=== PATIENT | female | born 1945 | race Caucasian/White ===

== ENCOUNTER 2022-11-15 09:59 | Outpatient (CLI) | payer OTHER, SELFPAY ==
--- NOTE | 2022-11-15 10:15 | CRLHL7_ITS ---
For Patients: As a result of the Century Cures Act, medical imaging exams and procedure reports are released immediately into your electronic medical record. You may view this report before your referring provider. If you have questions, please contact your health care provider. BILATERAL SCREENING MAMMOGRAM WITH COMPUTER-AIDED DETECTION AND TOMOSYNTHESIS TECHNIQUE: CC and MLO views were obtained. These mammographic images have been obtained using full-field digital technique. These mammographic images were interpreted with the benefit of computer-aided detection. Breast Tomosynthesis was used in this interpretation. COMPARISON FILM: 08/10/21, 12/24/19, 08/19/18. FINDINGS: There are scattered areas of fibroglandular density. IMPRESSION: There is no radiographic evidence for malignancy. ASSESSMENT: BI-RADS Category 1: Negative RECOMMENDATION: Routine screening mammogram in 1 year. A lay language report of this examination will be provided to the patient. Hector Campuzano M.D. Diagnostic Radiologist [email or web address] SARAH/rusty PT/Dictated by: Hector Campuzano MD @ 11/15/2022 12:11:00 PM (Electronically Signed)
== END 2022-11-15 10:00 | disposition home or self-care (01) ==
LOC: MAMMO 10:00
PROVIDERS: PCP Family Medicine; Visit Provider Family Medicine
DX: Z12.31 Encounter for screening mammogram for malignant neoplasm of breast (principal)
CPT/HCPCS: 77063; 77067

== ENCOUNTER 2023-05-24 08:21 | Emergency (ER) | payer MEDICARE, SELFPAY ==
[2023-05-24 08:24] VITALS: BP 135/79; PULSE 72; RESP 18; TEMP 36.6; O2SAT 99; BMI 28.0
--- NOTE | 2023-05-24 08:48 | ED.GENADULT ---
HPI - General Adult General Chief complaint: Extremity Pain/Injury, Lower Stated complaint: Right leg pain Time Seen by Provider: 05/24/23 08:29 Source: patient Mode of arrival: ambulatory Limitations: no limitations History of Present Illness HPI narrative: 78-year-old female presenting today with right-sided leg pain. Pain started yesterday behind the lower extremity in the calf area. This morning she felt a little bit higher on the calf, the pain in the lower calf resolved. She denies any recent travel, no recent surgery. No personal history of DVT or PE. She does state that she has chronic venous insufficiency of the lower extremities and wears compression stockings daily. She denies any systemic symptoms. She did have COVID-19 2 months ago. Related Data Home Medications Medication Instructions Recorded Confirmed Lactobacillus 1 cap PO .QD 08/31/22 03/29/23 acidophilus-Bifidobac.animalis 31 billion cell capsule estradiol 0.01% (0.1 mg/gram) 1 appful vaginal 3XW 08/31/22 05/24/23 vaginal cream melatonin 10 mg capsule 10 mg PO QHS PRN 08/31/22 03/29/23 mirabegron 50 mg tablet,extended 50 mg PO QDAY 08/31/22 05/24/23 release 24 hr Previous Rx's Medication Instructions Recorded furosemide 20 mg tablet 20 mg PO QDAY PRN edema #90 tabs 03/23/23 azithromycin 250 mg tablet See Rx Instructions PO .COMPLEX #6 03/29/23 tabs Allergies Allergy/AdvReac Type Severity Reaction Status Date / Time ciprofloxacin Allergy Mild Anxiety Verified 05/24/23 08:38 sulfamethoxazole AdvReac Verified 05/24/23 08:38 [From Sulfamethoxazole-Trimethoprim] trimethoprim AdvReac Verified 05/24/23 08:38 [From Sulfamethoxazole-Trimethoprim] Review of Systems Status of ROS: Reports: 10 or more systems reviewed and unremarkable except as noted in History and below PFSH PFS Surgical History Status post ablation of incompetent vein using laser ?Z98.890 - Other specified postprocedural states (ICD-10) History of tonsillectomy ?Z90.89 - Acquired absence of other organs (ICD-10) History of laser assisted in situ keratomileusis ?Z98.890 - Other specified postprocedural states (ICD-10) History of hysterectomy (2012) ?Z90.710 - Acquired absence of both cervix and uterus (ICD-10) Social History Smoking Status: Never smoker Little interest or pleasure in doing things: not at all Feeling down, depressed, or hopeless: not at all Exam Narrative: Exam Narrative: Well-nourished well-developed patient in no acute distress. Alert and oriented. Answers questions appropriately. Mood and affect are appropriate. Thoughts are goal oriented and rational. No tangential or magical thinking noted. Patient speaks in full sentences without needing to catch her breath. HEENT: Normocephalic atraumatic. Pupils are equally round reactive to light. Extraocular muscles are intact. Conjunctivae are moist without any icterus noted. Moist mucous membranes. Cardiovascular: Heart is regular rate and rhythm. Lungs: Clear to auscultation bilaterally. Extremities: Bilateral lower extremities are without edema she does have bilateral varicose veins and spider veins. Normal DP and PT pulses. Over the right posteromedial calf patient does have a palpable cord that is approximately 1-1/2 inches in length. This is the exact site of her pain. The skin is pink overlying it. It is not hot, indurated or erythematous. She has no tenderness anywhere else. The calf is not otherwise tender or swollen. Skin: Well perfused without any obvious rashes. Const: Vital Signs, click to edit/add: Vital Signs - 24 hr 05/24/23 08:24 Temperature 97.9 F Pulse Rate [Right Pulse Oximeter] 72 Respiratory Rate 18 Blood Pressure [Ri ght Upper Arm] 135/79 Pulse Oximetry 99 Oxygen Delivery Me thod Room Air Course Vital Signs Vital signs: Initial Vital Signs Temperature 97.9 F 05/24/23 08:24 Temperature Source Temporal Artery Scan 05/24/23 08:24 Pulse Rate 72 05/24/23 08:24 Pulse Rhythm Regular 05/24/23 08:24 Respiratory Rate 18 05/24/23 08:24 Blood Pressure 135/79 05/24/23 08:24 Blood Pressure Mean 97 05/24/23 08:24 Blood Pressure Position Sitting 05/24/23 08:24 Pulse Oximetry 99 05/24/23 08:24 Oxygen Delivery Method Room Air 05/24/23 08:24 Vital Signs Temperature 97.9 F 05/24/23 08:24 Pulse Rate 72 05/24/23 08:24 Respiratory Rate 18 05/24/23 08:24 Blood Pressure 135/79 05/24/23 08:24 Pulse Oximetry 99 05/24/23 08:24 Oxygen Delivery Method Room Air 05/24/23 08:24 Temperature 97.9 F 05/24/23 08:24 Pulse Rate 72 05/24/23 08:24 Respiratory Rate 18 05/24/23 08:24 Blood Pressure 135/79 05/24/23 08:24 Pulse Oximetry 99 05/24/23 08:24 Oxygen Delivery Method Room Air 05/24/23 08:24 Medical Decision Making MDM Narrative Medical decision making narrative: 78-year-old female with a superficial thrombophlebitis. I do not feel that there is any evidence of DVT at this time that would necessitate further imaging. We discussed symptomatic treatment and follow-up. Discharge Plan Discharge Clinical Impression: Superficial thrombophlebitis Patient Disposition: Home, Self-Care Condition: Stable Additional Instructions: Okay to continue acetaminophen use as needed. Okay to use heat or ice to the tender area in your leg. Continue using compression stockings. Do not sit for prolonged periods of time. Elevate your leg as much as you can. Recommend you follow-up with your primary care provider in approximately 7 days to make sure that the vein is healing appropriately. If you think that your symptoms are getting worse, return to the ER. Prescriptions: No Action azithromycin 250 mg tablet See Rx Instructions PO .COMPLEX Qty: 6 0RF Rx Instructions: For 250 mg dose pack: take 500 mg today (day 1), then 250 mg for 4 days (days 2-5) PO mirabegron 50 mg tablet extended release 24 hr 50 mg PO QDAY L. acidophilus/Bifid. animalis 31 billion cell capsule 1 cap PO .QD estradiol 0.01 % (0.1 mg/gram) cream 1 appful vaginal 3XW melatonin 10 mg capsule 10 mg PO QHS PRN furosemide 20 mg tablet 20 mg PO QDAY PRN (Reason: edema) Qty: 90 0RF Follow Up/Referrals: Mir Gould MD [Primary Care Provider] - Stand Alone Forms: [employer] Info Instructions
--- OUTSIDE RECORDS SUMMARY | 2023-05-24 08:58 | XMS_ITS | Clinical Summary ---
Author Name Unknown Organization [facility] Address [place], [place] [address] Care Team Providers Care Space Controller Name Role Phone Mir Gould MD Primary Care Provider [phone] Allergies Active Allergy Reactions Criticality Noted Date Comments Sulfamethoxazole-Trimethoprim Rash 2020 Ciprofloxacin *Unknown 09/14/2021 Medications Medication Sig Dispensed Refills Start Date End Date Status furosemide (LASIX) 20 mg tablet Take 20 mg by mouth once daily if needed. 0 06/15/2021 Active estradioL (Estrace) 0.01% (0.1 mg/g) vaginal creamIndications:Rec urrent UTI Insert 1 g into the vagina every Sunday, Sunday and Sunday. 42.5 g 3 04/21/2022 Active mirabegron EXTENDED-release (MYRBETRIQ) 50 mg tabletIndications:Ov eractive bladder Take 1 Tablet (50 mg) by mouth once daily. 90 Tablet 3 12/21/2022 Active Immunizations Name Administration Dates Next Due COVID-19 vaccine (Moderna 100mcg/0.5mL) PF MDV 05/27/2020 Influenza, IIV4 01/24/2020 Pneumococcal Poly,23-Valent (Pneumovax) 06/01/19 15 Pneumococcal conj 13-Valent (Prevnar 13) 016 Tdap 08/19/2018 Social History Tobacco Use Types Packs/Day Years Used Date Smoking Tobacco: Never Smokeless Tobacco: Never Tobacco Cessation:Counseling Given: Yes Alcohol Use Standard Drinks/Week Comments Not Currently 0 (1 standard drink = 0.6 oz pur e alcohol) rare Sex and Gender Information Value Date Recorded Sex Assigned at Not on file Gender Identity Not on file Sexual Orientation Not on file Obstetrics History Last Filed Vital Signs Vital Sign Reading Time Taken Comments Blood Pressure 120/80 12/21/2022 11:52 AM CDT Pulse 64 12/21/2022 11:52 AM CDT Temperature - - Respiratory Rate 18 06/22/2021 9:48 AM 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 Oxygen Saturation 96% 12/21/2022 11:52 AM CDT Inhaled Oxygen Concentration - - Weight 67.2 kg (148 lb 3.2 oz) 12/21/2022 11:52 AM CDT Height - - Body Mass Index - - Plan of Treatment Health Maintenance Due Date Last Done Comments Depression screening for age 12+ 1956 BMI (ht and wt on same day) for age 18+ 1962 Hepatitis C screening for age 18-79 1962 Zoster (shingles) series for age 50+ (1 of 2) 1994 DEXA/DXA scan for age 65+ 2009 Medicare Wellness for age 65+ 2009 COVID-19 vaccine series ( season) 2022 08/29/2021, 02/09/2021, 05/27/2020 Influenza for age 65+ 12/15/2022 01/24/2020 Tetanus booster 08/19/2028 08/19/2018 Pneumococcal series for age 65+ Completed 6, 06/01/2014 Tdap Completed 08/19/2018 Care Teams Space Controller Relationship Specialty Start Date End Date Mir Gould MD [address] [place] [address] PCP - General Family Practice 02/04/20
== END 2023-05-24 09:07 | disposition home or self-care (01) ==
LOC: ED 08:57
PROVIDERS: Emergency Provider Family Medicine; PCP Family Medicine
DX: I80.01 Phlebitis and thrombophlebitis of superficial vessels of right lower extremity (principal)
CPT/HCPCS: 99283

== ENCOUNTER 2023-06-07 08:57 | Outpatient (CLI) | payer MEDICARE, SELFPAY | END 2023-06-07 08:58 | disposition home or self-care (01) | LOC: NFLDREF 08:58 | PROVIDERS: PCP Family Medicine; Visit Provider Family Medicine | DX: R30.0 Dysuria (principal) | CPT/HCPCS: 87086; 87186 ==

== ENCOUNTER 2023-06-29 10:03 | Outpatient (CLI) | payer MEDICARE, SELFPAY | END 2023-06-29 10:04 | disposition home or self-care (01) | PROVIDERS: PCP Family Medicine; Visit Provider Obstetrics & Gynecology | DX: N39.41 Urge incontinence (principal) | CPT/HCPCS: 87086 ==

== ENCOUNTER 2023-08-07 09:11 | Outpatient (CLI) | payer MEDICARE, SELFPAY ==
--- OUTSIDE RECORDS SUMMARY | 2023-08-07 09:15 | XMS_ITS | Clinical Summary ---
Author Name Unknown Organization [facility] Address [place], [place] [address] Care Team Providers Care Steamer Blocker Name Role Phone Mir Gould MD Primary Care Provider [phone] Allergies Active Allergy Reactions Criticality Noted Date Comments Sulfamethoxazole-Trimethoprim Rash 2020 Ciprofloxacin *Unknown 09/14/2021 Medications Medication Sig Dispensed Refills Start Date End Date Status furosemide (LASIX) 20 mg tablet Take 20 mg by mouth once daily if needed. 06/15/2021 Active estradioL (Estrace) 0.01% (0.1 mg/g) vaginal creamIndications:Rec urrent UTI Insert 1 g into the vagina every Sunday, Sunday and Sunday. 42.5 g 3 04/21/2022 Active mirabegron EXTENDED-release (MYRBETRIQ) 50 mg tabletIndications:Ov eractive bladder Take 1 Tablet (50 mg) by mouth once daily. 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 Oxygen Saturation 96% 12/21/2022 11:52 AM CDT Inhaled Oxygen Concentration - - Weight 67.2 kg (148 lb 3.2 oz) 12/21/2022 11:52 AM CDT Height - - Body Mass Index - - Plan of Treatment Upcoming Encounters Date Type Department Care Team (Late st Contact Info) Description 12/20/2023 1:30 PM CDT Office Visit [facility] [address] [place] [address] Timmy Pratt MD [address] [facility] [address] [place] [address] Health Maintenance Due Date Last Done Comments [...] 08/29/2021, 02/09/2021, 05/27/2020 Influenza for age 65+ 12/16/2023 01/24/2020 Tetanus booster 08/19/2028 08/19/2018 Pneumococcal series for age 65+ Completed 6, 06/01/2014 Tdap Completed 08/19/2018 Care Teams Steamer Blocker Relationship Specialty Start Date End Date Mir Gould MD [address] [facility] [place] [address] PCP - General Family Practice 02/04/20
== END 2023-08-07 09:12 | disposition home or self-care (01) ==
LOC: NFLDREF 09:12
PROVIDERS: PCP Family Medicine; Visit Provider Obstetrics & Gynecology
DX: N39.0 Urinary tract infection, site not specified (principal)
CPT/HCPCS: 87086; 87186

== ENCOUNTER 2023-08-14 09:34 | Outpatient (CLI) | payer MEDICARE, SELFPAY ==
--- OUTSIDE RECORDS SUMMARY | 2023-08-17 11:14 | XMS_ITS | Clinical Summary ---
Author Name Unknown Organization [facility] Address [place], [place] [address] Care Team Providers Care Environmental Resource Specialist Name Role Phone Mir Gould MD Primary Care Provider [phone] Allergies Active Allergy Reactions Criticality Noted Date [...] Type Department Care Team Description 07/04/[address] [address] Timmy Pratt MD Questions from [...] - Respiratory Rate 18 06/22/2021 9:48 AM MANAGER MATERIAL Oxygen Saturation 96% 12/21/2022 11:52 AM CDT Inhaled Oxygen Concentration - - Weight 67.2 kg (148 lb 3.2 oz) 12/21/2022 11:52 AM CDT Height - - Body Mass Index - - Plan of Treatment Upcoming Encounters Date Type Department Care Team (Late st Contact Info) Description 12/20/2023 1:30 PM CDT Office Visit [facility] [address] [place] [address] Timmy Pratt MD [address] [facility] [address] [place] [address] Health Maintenance Due Date Last [...] 6, 06/01/2014 Tdap Completed 08/19/2018 Care Teams Environmental Resource Specialist Relationship Specialty Start Date End Date Mir Gould MD [address] [facility] [place] [address] PCP - General Family Practice 02/04/20
== END 2023-08-14 09:35 | disposition home or self-care (01) ==
LOC: NFLDREF 08-17 11:12
PROVIDERS: PCP Family Medicine; Referring Provider Family Medicine; Visit Provider Obstetrics & Gynecology
DX: N39.0 Urinary tract infection, site not specified (principal)
CPT/HCPCS: 87086

== ENCOUNTER 2024-07-16 07:55 | Outpatient (CLI) | payer MEDICARE, SELFPAY | END 2024-07-16 07:56 | disposition home or self-care (01) | PROVIDERS: PCP Family Medicine; Visit Provider Family Medicine | DX: N39.0 Urinary tract infection, site not specified (principal) | CPT/HCPCS: 87086 ==

== ENCOUNTER 2024-07-30 09:12 | Outpatient (CLI) | payer MEDICARE, SELFPAY | END 2024-07-30 09:13 | disposition home or self-care (01) | LOC: NFLDREF 09:13 | PROVIDERS: PCP Family Medicine; Visit Provider Family Medicine | DX: N39.0 Urinary tract infection, site not specified (principal); B95.2 Enterococcus as the cause of diseases classified elsewhere | CPT/HCPCS: 87086; 87186 ==

== ENCOUNTER 2024-12-03 15:30 | Outpatient (CLI) | payer MEDICARE, SELFPAY | END 2024-12-03 15:31 | disposition home or self-care (01) | LOC: NFLDREF 12-08 19:19 | PROVIDERS: PCP Family Medicine; Referring Provider Family Medicine; Visit Provider Physician Assistant Surgical | DX: R39.15 Urgency of urination (principal); N39.0 Urinary tract infection, site not specified; R32 Unspecified urinary incontinence | CPT/HCPCS: 87086 ==

== ENCOUNTER 2025-02-11 14:18 | Outpatient (CLI) | payer MEDICARE, SELFPAY | END 2025-02-11 14:19 | disposition home or self-care (01) | LOC: NFLDREF 02-12 19:50 | PROVIDERS: PCP Family Medicine; Referring Provider Family Medicine; Visit Provider Physician Assistant Surgical | DX: N30.21 Other chronic cystitis with hematuria (principal) | CPT/HCPCS: 87086; 87186 ==

== ENCOUNTER 2025-02-27 11:35 | Outpatient (CLI) | payer MEDICARE, SELFPAY | END 2025-02-27 11:36 | disposition home or self-care (01) | LOC: NFLDUCREF 11:36 | PROVIDERS: PCP Family Medicine; Visit Provider Nurse Practitioner Family | DX: R39.9 Unspecified symptoms and signs involving the genitourinary system (principal) | CPT/HCPCS: 87086 ==

== ENCOUNTER 2025-03-01 09:44 | Emergency (ER) | payer MEDICARE, SELFPAY ==
--- OUTSIDE RECORDS SUMMARY | 2025-03-01 09:47 | XMS_ITS | Clinical Summary ---
Author Organization [facility] Address [address] [place] [address] Care Team Providers Care Store Management Trainee Name Role Phone Unavailable Primary Care Provider Unavailabl e Source Comments Patient records contain information from all sites at [facility]. For routine questions regarding patient records, call [phone] during business hours, M-F 8:00 AM - 5:00 PM Central Time. Record requests for emergency care only can be directed to [phone] at any time.[facility] Allergies Active Allergy Reactions Criticality Noted Date Comments Ciprofloxacin Rash,Anxiety 09/14/2021 Sulfamethoxazole Other (see comments) 4 Sulfamethoxazole-Trimethoprim Rash 2020 Medications furosemide (Lasix) 20 mg tablet Take 20 mg by mouth at bedtime as needed. 06/15/2021 Active neomycin-polymy leilani B-dexameth (Maxitrol) 3.5 mg/g-10,000 unit/g-0.1 % ophthalmic ointment Apply 0.5 inches to both eyes. 11/20/2023 Active Myrbetriq 50 mg 24 hr tablet Take 50 mg by mouth daily. Active estradioL (Estrace) 0.1 mg/g (0.01%) vaginal cream Apply a pea-sized amount in and around the vagina 2 times/week. 42.5 g 11 06/19/2024 Active Social History Tobacco Use Types Packs/Day Years Used Date Smoking Tobacco: Never Smokeless Tobacco: Never [facility] Utilities Answer Date Recorded In the past 12 months has [facility] eCurv, gas, oil, or water [employer] threatened to shut off services in your home? No 11/25/2023 Hunger Vital Sign Answer Date Recorded Within the past 12 months, y ou worried that your food would run out before you got the money to buy more. Never true 11/25/19 24 Within the past 12 months, t he food you bought just didn't last and you didn't have money to get more. Never true 11/25/2023 PRAPARE - Transportation Answer Date Re corded In the past 12 months, has l ack of transportation kept you from medical appointments or from getting medications? No 11/14 In the past 12 months, has l ack of transportation kept you from meetings, work, or from getting things needed for daily living? No 11/25/2023 Housing Stability Answer Date Recorded What is your living situation today? I have a [facility] place to live 11/25/2023 Comments Unknown Sex and Gender Information Value Date Recorded Sex Assigned at Female 11/25/2023 2:05 PM CDT Legal Sex Female 9:23 AM CDT Gender Identity Female 11/25/2023 2:05 PM CDT Sexual Orientation Straight 11/25/2023 2: 05 PM CDT Plan of Treatment Health Maintenance Due Date Last Done Comments Zoster Vaccines (1 of 2) 1994 RSV vaccine - (32-36 weeks) or 50+ years (1 - 1-dose 75+ series) 2019 Depression Screening (Annual PHQ-2) 04/16/2024 Fall Risk Screen (Annual) 04/16/2024 COVID-19 Vaccine ( season) 2024 08/29/2021, 02/09/2021, 06/24/2020, Additional history exists Influenza Vaccine (#1) 2024 , 02/06/2023, 01/27/2021, Additional history exists DTaP,Tdap,and Td Vaccines (2 - Td or Tdap) 08/19/2028 08/19/2018 Pneumococcal vaccine (50+ years) Completed 11/25/2015, 06/01/2014 IPV Vaccines Aged Out No longer eligi ble based on patient's age to complete this topic Medical Devices Implanted Type Area Data Modeling Specialist Device Identifier Shelf Expiration Date Model / Serial / Lot Ocular Lens Ocular Lens Bilateral : Eye Insurance [facility]
--- OUTSIDE RECORDS SUMMARY | 2025-03-01 09:47 | XMS_ITS | Clinical Summary ---
Author Organization [facility] er Address [address] [place] [address] Care Team Providers Care Plastic Press Molder Name Role Phone None, Pcp Primary Care Provider Unavailabl e Allergies Active Allergy Reactions Criticality Noted Date Comments Ciprofloxacin Other (see comments),Anxiety,Rash 09/14/2021 Sulfamethoxazole Other (see comments) Sulfamethoxazole-Trimethoprim Rash Low 2020 Medications estradiol (ESTRACE) 0.1 MG/GM vaginal cream Insert 1 g into the vagina 3 (three) times a week 06/19/2024 Active Multiple Vitamins-Minera ls (PRESERVISION AREDS 2 PO) Take 1 tablet by mouth 2 (two) times a day Active Cranberry-D Mannose 158-500 MG capsule Take 2 tablets by mouth 1 (one) time each day Active Multiple Vitamin (MULTIVITAMIN ADULT PO) Take 1 tablet by mouth daily Active Lactobacillus (Acidophilus Probiotic) tablet Take 1 tablet by mouth 1 (one) time each day Active Encounters Date Type Department Care Team Description 12/22/2024 Results Follow-Up [facility] Employee Communications Specialist [address] [place] [address] Jayde Lazcano, RN Urine culture (clinic staff collect during appt) 12/18/2024 10:15 AM CDT Procedure visit [facility] TELEPHONE MAINTENANCE MECHANIC Procedure Room [address] [place] [address] Saeed Kiser MD OAB (overactive bladder) (Primary Dx); Recurrent UTI; Dysuria 12/18/2024 Telephone [facility] Employee Communications Specialist [address] [place] [address] Saeed Kiser MD 12/04/2024 Telephone [facility] Employee Communications Specialist [address] [place] [address] Saeed Kiser MD UTI f/u 12/03/2024 Telephone [facility] Employee Communications Specialist [address] [place] [address] Saeed Kiser MD f/u Botox questions from Last 3 Months Social History Tobacco Use Types Packs/Day Years Used Date Smoking Tobacco: Never Smokeless Tobacco: Never Tobacco Cessation:Counseling Given: Not Answered Comments No Sex and Gender Information Value Date Recorded Sex Assigned at Not on file Legal Sex Female 3:17 PM CDT Gender Identity Not on file Sexual Orientation Not on file Last Filed Vital Signs Vital Sign Reading Time Taken Comments Blood Pressure 143/72 12/18/2024 10:40 AM CDT Pulse 57 12/18/2024 10:40 AM CDT Temperature - - Respiratory Rate - - Oxygen Saturation - - Inhaled Oxygen Concentration - - Weight - - Height - - Body Mass Index - - Plan of Treatment Health Maintenance Due Date Last Done Comments Bone Density Scan 1944 Mammogram 1944 Fall Risk Performed 1962 Medicare Annual Wellness Visit (AWV) 1962 Zoster Vaccines (1 of 2) 1994 COVID-19 Vaccine ( - season) 2024 08/29/2021, 02/09/2021, 06/24/2020, Additional history exists Influenza Vaccine (#1) 2024 , 02/06/2023, 01/27/2021, Additional history exists DTaP,Tdap,and Td Vaccines (2 - Td or Tdap) 08/19/2028 08/19/2018 Pneumococcal Vaccine: 50+ Years Completed 11/25/2015, 06/01/2014 HPV Vaccines Aged Out No longer eligi ble based on patient's age to complete this topic Procedures Procedure Name Priority Date/Time Associated Diagnosis Comments URINE CULTURE Routine 12/18/2024 10:49 AM CDT OAB (overactive bladder) from Last 3 Months Results * (ABNORMAL) Urine culture (clinic staff collect during appt) (12/18/2024 10:49 AM CDT) Urine Culture Escherichia coli >100,000 cfu/ml (A) 12/20/2024 7:32 AM CDT [facility] Urine (Urine, Catheter) 12/18/2024 10:49 AM CDT 12/18/2024 12:55 PM CDT Comment:Urine Culture Narrative Organism Antibiotic Method Susceptibility Escherichia coli Ampicillin PARVEZ <=8 mcg/mL: Susceptible Escherichia coli Ampicillin/Sulbactam PARVEZ <=8/4 mcg/mL: Susceptible Escherichia coli Cefazolin PARVEZ <=2 mcg/mL: Susceptible Escherichia coli Ciprofloxacin PARVEZ <=0.25 mcg/mL: Susceptible Escherichia coli Levofloxacin PARVEZ <=0.5 mcg/mL: Susceptible Escherichia coli Nitrofurantoin PARVEZ <=32 mcg/mL: Susceptible Escherichia coli Piperacillin/Tazobactam PARVEZ <=8 mcg/mL: Susceptible Escherichia coli Trimeth/Sulfa PARVEZ <=2/38 mcg/mL: Susceptible us Saeed Kiser MD LAB MICROBIOLOGY - GEN ERAL ORDERABLES Final Result [facility] [address] [place] [address] from Last 3 Months Insurance [facility] MEDICARE ADVANTAGE Care Teams Plastic Press Molder Relationship Specialty Start Date End Date None, Pcp [address] [place] [address] PCP - General Cutter Plastics Rolls 12/09/24
--- OUTSIDE RECORDS SUMMARY | 2025-03-01 09:48 | XMS_ITS | Clinical Summary ---
Author Organization [facility] Address [address] [place] [id number] Care Team Providers Care Process Validation Engineer Name Role Phone Mir Gould MD Primary Care Provider [phone] Allergies Active Allergy Reactions Criticality Noted Date Comments Sulfamethoxazole-Trimethoprim Rash 2020 Ciprofloxacin *Unknown 09/14/2021 Medications furosemide (LASIX) 20 mg tablet Take 20 mg by mouth once daily if needed. 2 Active estradioL (Estrace) 0.01% (0.1 mg/g) vaginal creamIndication s:Recurrent UTI Insert 1 g into the vagina every Sunday, Sunday and Sunday. 42.5 g 3 3 Active mirabegron EXTENDED-releas e (Myrbetriq) 50 mg tabletIndicatio ns:Overactive bladder Take 1 Tablet (50 mg) by mouth once daily. 30 Tablet 11 4 Active Immunizations Immunization Administration Dates Next Due COVID-19 vaccine (Moderna 100mcg/0.5mL) PF, MDV 05/27/2020 Influenza, IIV4 01/24/2020 Pneumococcal Poly,23-Valent (Pneumovax) 06/01/19 15 Pneumococcal conj 13-Valent (Prevnar 13) 016 Tdap 08/19/2018 Social History Tobacco Use Types Packs/Day Years Used Date Smoking Tobacco: Never Smokeless Tobacco: Never Tobacco Cessation:Counseling Given: Yes Alcohol Use Standard Drinks/Week Comments Not Currently 0 (1 standard drink = 0.6 oz pur e alcohol) rare Comments No Sex and Gender Information Value Date Recorded Sex Assigned at Not on file Legal Sex Female 10:41 AM CDT Gender Identity Not on file Sexual Orientation Not on file Obstetrics History Last Filed Vital Signs Vital Sign Reading Time Taken Comments Blood Pressure 120/80 12/21/2022 11:52 AM CDT Pulse 64 12/21/2022 11:52 AM CDT Temperature - - Respiratory Rate 18 06/22/2021 9:48 AM AUDIO DIRECTOR Oxygen Saturation 96% 12/21/2022 11:52 AM CDT Inhaled Oxygen Concentration - - Weight 67.2 kg (148 lb 3.2 oz) 12/21/2022 11:52 AM CDT Height - - Body Mass Index - - Plan of Treatment Health Maintenance Due Date Last Done Comments Depression screening for age 12+ 1956 BMI (ht and wt on same day) for age 18+ 1962 Zoster (shingles) series for age 50+ (1 of 2) 1994 DEXA/DXA scan for age 65+ 2009 Medicare Wellness for age 65+ 2009 RSV vaccine for adults or (1 - 1-dose 75+ series) 2019 Influenza Vaccine (#1) 2024 01/24/2020 Tetanus booster 08/19/2028 08/19/2018 Pneumococcal series for age 50+ Completed 11/25/2015, 06/01/2014 Hepatitis B series for 19+ Aged Out N o longer eligible based on patient's age to complete this topic Insurance [id number] [facility] [place] [id number] [employer] [place] [employer] ONLY [employer] CHOICE PPO MR Care Teams Process Validation Engineer Relationship Specialty Start Date End Date Mir Gould MD [address] [place] [id number] PCP - General Family Practice 02/04/20
[2025-03-01 10:16] VITALS: BP 130/82; PULSE 72; RESP 18; TEMP 36.4; O2SAT 97; BMI 26.8
--- NOTE | 2025-03-01 12:29 | ED_ITS ---
HPI - General Adult General Chief complaint: Urogenital Problems, Female Stated complaint: Issues with UTI's Time Seen by Provider: 03/01/25 12:17 Related Data Home Medications ?Medication ?Instructions ?Recorded ?Confirmed estradiol 0.01% (0.1 mg/gram) 1 appful vaginal 3XW 03/01/25 vaginal cream Previous Rx's ?Medication ?Instructions ?Recorded nitrofurantoin 100 mg PO Q12H 5 days #10 ca ps 02/27/25 monohydrate/macrocrystals 100 mg capsule (Macrobid) levofloxacin 500 mg tablet 500 mg PO DAILY 10 days #10 tabs 03/01/25 Allergies Allergy/AdvReac Type Severity Reaction Status Date / Time ciprofloxacin Allergy Mild Anxiety Verified 03/01/25 10:25 sulfamethoxazole (From AdvReac Verified 03/01/25 10:25 Sulfamethoxazole-Trimethoprim) trimethoprim (From AdvReac Verified 03/01/25 10:25 Sulfamethoxazole-Trimethoprim) Review of Systems Status of ROS: Reports: 10 or more systems reviewed and unremarkable except as noted in History and below Narrative: Constitutional: No fevers, no weight gain or loss. Eyes: No discharge. No vision changes. HENT: No congestion, no sore throat, no ear pain. Cardiovascular: No chest pain, no palpitations. Respiratory: No shortness of breath, no wheezes, no cough. Gastrointestinal: No abdominal pain, no vomiting, no diarrhea. Genitourinary: No dysuria, no hematuria. Musculoskeletal: Normal range of motion. Skin: No rashes, no pruritis. Neurological: No dizziness, weakness, sensory change, speech change. Endo/Heme/Allergies: No bruising or bleeding. No polydipsia. Pysch: no suicidality, no anxiety, no insomnia. All other systems reviewed and are negative. [facility] Medical History Serous otitis media ?H65.90 - Unspecified nonsuppurative otitis media, unspecified ear (ICD-10) Surgical History Status post ablation of incompetent vein using laser ?Z98.890 - Other specified postprocedural states (ICD-10) History of tonsillectomy ?Z90.89 - Acquired absence of other organs (ICD-10) History of laser assisted in situ keratomileusis ?Z98.890 - Other specified postprocedural states (ICD-10) History of hysterectomy (2011) ?Z90.710 - Acquired absence of both cervix and uterus (ICD-10) Social History What is your current living situation?: I presently have a place to live Problems where you live: no known problems In the past 12 months, utilities in danger of being shut off: no In past 12 months, lack of transportation kept you from medical appts, meetings, work, or getting things needed for daily living: no In the past 12 mos, have been you worried that your food would run out before you had money to buy more?: never true In the past 12 mos, the food you bought just didn't last and you didn't have money to buy more?: never true Smoking Status: Never smoker Do you use any of these nicotine containing products: None How often do you have a drink containing alcohol: never How often do you have six or more drinks on one occasion: Never AUDIT-C Alcohol total score: 0 Non-prescribed substance use: denies use How often does anyone, including family, friends and others, physically hurt you : never How often does anyone, including family, friends and others, insult or talk down to you: never How often does anyone, including family, friends and others, threaten you with harm: never How often does anyone, including family, friends and others, scream or curse at you: never service: No Exam Narrative: Exam Narrative: Constitutional: Well-developed, well-nourished, no acute distress. HEENT: Normocephalic, atraumatic. Neck: Normal range of motion. Nontender. Supple. Heart: Regular. No murmurs. Normal rate. Intact distal pulses. Lungs: Clear to auscultation. No chest discomfort. No wheezes, rhonchi, or rales. Abdomen: Normal bowel sounds. Nontender. No rebound tenderness. Genitalia: Deferred. Back: No midline tenderness. Normal range of motion. Extremities: Normal range of motion. No injury. Skin: Intact. No rash. Warm. No erythema or pallor. Neurologic: No altered sensation. No weakness. Alert and oriented. Psychiatric: No suicidality. No anxiety or depression. No insomnia. Nursing notes and vitals signs are reviewed. Const: Vital Signs, click to edit/add: Vital Signs - 24 hr 03/01/25 10:16 Temperature 97.6 F Pulse Rate [Pulse Oximeter] 72 Respiratory Rate 18 Blood Pressure [Ri ght Upper Arm] 130/82 Pulse Oximetry 97 Oxygen Delivery Me thod Room Air Course Vital Signs Vital signs: Initial Vital Signs Temperature 97.6 F 03/01/25 10:16 Temperature Source Temporal Artery Scan 03/01/25 10:16 Pulse Rate 72 03/01/25 10:16 Respiratory Rate 18 03/01/25 10:16 Blood Pressure 130/82 03/01/25 10:16 Blood Pressure Mean 98 03/01/25 10:16 Blood Pressure Position Sitting 03/01/25 10:16 Pulse Oximetry 97 03/01/25 10:16 Oxygen Delivery Method Room Air 03/01/25 10:16 Vital Signs Temperature 97.6 F 03/01/25 10:16 Pulse Rate 72 03/01/25 10:16 Respiratory Rate 18 03/01/25 10:16 Blood Pressure 130/82 03/01/25 10:16 Pulse Oximetry 97 03/01/25 10:16 Oxygen Delivery Method Room Air 03/01/25 10:16 Temperature 97.6 F 03/01/25 10:16 Pulse Rate 72 03/01/25 10:16 Respiratory Rate 18 03/01/25 10:16 Blood Pressure 130/82 03/01/25 10:16 Pulse Oximetry 97 03/01/25 10:16 Oxygen Delivery Method Room Air 03/01/25 10:16 Medical Decision Making [facility] Narrative Medical decision making narrative: This patient comes in with persistent dysuria symptoms despite taking Macrobid. She arrives here with normal vital signs. Urinalysis today shows no obvious sign of infection however looking back at her most recent culture and sensitivity it is clear that Macrobid is not the best medicine to treat this particular E coli infection. She states that she does take Macrobid and feels better for 3 or 4 days and then symptoms returned when she discontinues the medicine. It seems that it is bacteriostatic and not bacteriocidal. The patient has allergy listed to sulfa and Cipro. The Cipro is not a true allergy as the symptoms listed are anxiety. Patient states that she also had been prescribed Keflex but did not even take it could she felt like it smelled undesirable. I did provide a prescription for Levaquin which shows good results on the sensitivity report and hopefully will not be offensive to her. Lab Data Labs: Lab Results 03/01/25 Range/Units 12:30 Urine Color Yellow (Yellow) Urine Appearance Clear (Clear) Urine pH 7.0 (5.0-8.5) Ur Specific Burden 1.015 (1.000-1.030) Urine Protein Negative (Negative) Urine Glucose (UA) Negative (Negative) Urine Ketones Trace A (Negative) Urine Blood Negative (Negative) Urine Nitrite Negative (Negative) Urine Bilirubin Negative (Negative) Urine Urobilinogen 0.2 (0.2-1.0) Ur Leukocyte Esterase Trace A (Negative) Urine RBC 0-2 (0-2) Urine WBC 0-2 (0-5) Ur Squamous Epith Cells Few (None-Few) Urine Bacteria None (None) Discharge Plan Discharge Clinical Impression: Urinary tract infection Patient Disposition: Home, Self-Care Condition: Stable Additional Instructions: Take medication as prescribed. Follow up with MD as needed or return if worsening. Prescriptions: New levofloxacin 500 mg tablet 500 mg PO DAILY 10 Days Qty: 10 0RF No Action estradiol 0.01 % (0.1 mg/gram) cream 1 appful vaginal 3XW nitrofurantoin monohyd/m-cryst [Macrobid] 100 mg capsule 100 mg PO Q12H 5 Days Qty: 10 0RF Rx Instructions: must administer with a meal/food Follow Up/Referrals: Mir Gould MD [Primary Care Provider, Family Practice] Stand Alone Forms: Toopher Info Instructions
[2025-03-01 12:37] LABS: Appearance Urine Clear (Clear)
== END 2025-03-01 14:03 | disposition home or self-care (01) ==
PROVIDERS: Emergency Provider Emergency Medicine Emergency Medical Services; PCP Family Medicine
DX: N39.0 Urinary tract infection, site not specified (principal)
CPT/HCPCS: 81001; 81003; 87086; 99283; 99284